=== PATIENT | male | born 1990 | race Two or more races ===

== ENCOUNTER 2018-11-30 08:27 | Emergency (ER) | payer SELFPAY ==
[~2018-11-30] VITALS: Ht 167.6 cm; Wt 77.1 kg
--- NOTE | 2018-11-30 09:15 | Diagnostic Imaging Report ---
RIGHT SHOULDER X-RAY - 2 VIEWS HISTORY: ^SAYS HE DISLOCATED WHILE CHASING A SUSPECT, HE RELOCATED IT COMPARISON: None available. FINDINGS: Bones: No acute displaced fracture. Osseous alignment is within normal limits. Joints: The joint spaces are well-maintained. Soft tissues: The soft tissues appear unremarkable. The right lung is clear. No pneumothorax or pleural effusions. IMPRESSION: No acute radiographic abnormality. Signed by: Dr. Letty Macedo M.D. on 11/30/2018 9:11 AM
== END 2018-11-30 09:47 | disposition home or self-care (01) ==
LOC: ER 08:27
DX: S40.011A Contusion of right shoulder, initial encounter (principal); W22.8XXA Striking against or struck by other objects, initial encounter; Y93.02 Activity, running; Y92.89 Other specified places as the place of occurrence of the external cause
CPT/HCPCS: 99283